=== PATIENT | female | born 2005 | race Caucasian/White ===

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

== ENCOUNTER 2024-07-28 11:28 | Emergency (ER) | payer BC, MEDICAID, SELFPAY ==
[2024-07-28 11:45] VITALS: BP 115/67; PULSE 81; RESP 18; TEMP 36.7; O2SAT 98; BMI 37.4
[2024-07-28 14:17] VITALS: BP 133/83; PULSE 88; O2SAT 96
--- NOTE | 2024-07-28 14:22 | USR_ITS ---
PROCEDURE INFORMATION: Exam: US First Trimester, Transabdominal and US , Transvaginal Exam date and time: 07/28/2024 2:57 PM Age: 19 years old Clinical indication: Screening exam; Routine US, uterus; Additional info: Vaginal bleeding S/P miscarriage TECHNIQUE: Imaging protocol: Real-time transabdominal obstetrical ultrasound of the maternal pelvis and a first trimester , less than 14 weeks 0 days, with image documentation. Transvaginal imaging was used for better evaluation of the fetus, adnexa, and/or cervix. COMPARISON: No relevant prior studies available. FINDINGS: GESTATION: Gestation: Not visualized. Embryo/ cardiac activity (BPM): N/A Extra-embryonic membranes/Placenta: No visualized. Amniotic/Chorionic fluid: Not visualized. BIOMETRY: Gestational age (AUA): N/A MATERNAL: Uterus: Uterus measures 5.7 cm in length. Endometrial stripe 0.5 cm. Cervix: Unremarkable. Endocervical canal is closed. Right ovary/adnexa: Unremarkable. Left ovary/adnexa: Anechoic cystic structure in the left adnexa measuring 4.2 x 4.6 x 5.7 cm on transabdominal exam and 4.8 x 3.2 x 4.6 cm on transvaginal exam. Intraperitoneal space: Trace free pelvic fluid. US/US OB <=14 wk fetus w transvag IMPRESSION: 1. No intrauterine identified. Findings are compatible with history of spontaneous . No evidence of retained products of conception. 2. Left adnexal cyst, possibly a corpus luteal cyst.
[2024-07-28 15:17] LABS: Basophils % 0.4 %; Eosinophils # 0.2 10^3/uL (0.0-0.8); Eosinophils % 2.6 %; Hematocrit 44.7 % (36-47); Lymphocytes # 1.6 10^3/uL (0.8-4.8); Lymphocytes % 23.7 %; Mean Corpuscular Volume 88.3 fl (85-98); Mean Platelet Volume 10.7 fL (7.4-10.4); Monocytes # 0.6 10^3/uL (0.2-0.9); Monocytes % 8.8 %; Neutrophils # 4.44 10^3/uL (1.8-7.7); Neutrophils % 64.2 %; Nucleated Red Blood Cells % 0 %; Platelet Count 314 10^3/cmm (157-399); Red Blood Count 5.06 10^6/uL (3.85-5.65); Red Cell Distribution Width 12.4 % (12.1-15.1); White Blood Count 6.92 10^3/uL (3.29-11.43)
[2024-07-28 15:32] LABS: HCG, Serum Qual Negative (Negative)
[2024-07-28 15:36] LABS: Alanine Aminotransferase 25 U/L (0-33); Albumin Level 4.5 g/dL (3.5-5.2); Alkaline Phosphatase 49 U/L (35-105); Anion Gap 15.4 (5-19); Aspartate Amino Transferase 15 U/L (0-32); Blood Urea Nitrogen 8 mg/dL (6-20); Calcium 9.3 mg/dL (8.5-10.5); Carbon Dioxide 24 mmol/L (22-29); Chloride 100 mmol/L (98-107); Globulin 2.7 g/dL (1.3-4.6); Glomerular Filtration Rate 126.2 mL/min (90-130); Glucose 90 mg/dL (65-115); Osmolality Calculated 280 mOsm/kg (285-295); Potassium 3.4 mmol/L (3.5-5.1); Sodium 136 mmol/L (136-145); Total Bilirubin 0.5 mg/dL (0.15-1.2); Total Protein 7.2 g/dL (6.6-8.7)
--- NOTE | 2024-07-28 15:45 | W.ED.PREGNAN ---
HPI - General: Chief complaint: Vaginal Bleeding Stated complaint: Heavy Vag Discharge Time Seen by Provider: 07/28/24 14:21 History of Present Illness: 19-year-old female who presents emergency room with concern for vaginal bleeding in with probable miscarriage. By the time she comes back to the room she says she passed the fetus while in the waiting room. She is cramping is improving. She says she was sent to do an outpatient ultrasound and lab work but there was some sort of clerical error and so she checked in the emergency room and then ended up having miscarriage while here. She said she has had multiple miscarriage and they have been able to figure out why. She said she is Rh- but she is never had a RhoGAM shot. No fevers. No altered mental status. No chest pain. No shortness of breath. Related Data Home Medications ?Medication ?Instructions ?Recorded ?Confirmed No Known Home Medications 07/28/24 07/28/24 Allergies Allergy/AdvReac Type Severity Reaction Status Date / Time benzonatate Allergy Mild hives Verified 07/28/24 11:54 diphenhydramine (From Allergy Mild hives Verified 07/28/24 11:54 Banophen Anti-Itch) loratadine Allergy Mild hives Verified 07/28/24 11:54 montelukast (From Singulair) Allergy Mild hives Verified 07/28/24 11:54 omeprazole Allergy Mild hives Verified 07/28/24 11:54 Penicillins Allergy Mild hives Verified 07/28/24 11:54 ranitidine (From Zantac) Allergy Mild hives Verified 07/28/24 11:54 tizanidine Allergy Mild hives Verified 07/28/24 11:54 zinc acetate (From Banophen Allergy Mild hives Verified 07/28/24 11:54 Anti-Itch) Review of Systems Narrative: Constitutional symptoms: Negative except as documented in HPI. Skin symptoms: Negative except as documented in HPI. Eye symptoms: Negative except as documented in HPI. ENMT symptoms: Negative except as documented in HPI. Respiratory symptoms: Negative except as documented in HPI. Cardiovascular symptoms: Negative except as documented in HPI. Gastrointestinal symptoms: Negative except as documented in HPI. Genitourinary symptoms: Negative except as documented in HPI. Musculoskeletal symptoms: Negative except as documented in HPI. Neurologic symptoms: Negative except as documented in HPI. Psychiatric symptoms: Negative except as documented in HPI. Endocrine symptoms: Negative except as documented in HPI. [facility] ED PFSH: Social History Smoking and tobacco/nicotine status: never used tobacco/nicotine Physical Exam Narrative: EXAM NARRATIVE: General: Alert, no acute distress. Skin: Warm, dry. Head: Normocephalic, atraumatic. Neck: Supple, trachea midline. Eye: Extraocular movements are intact. Ears, nose, mouth and throat: mucosa moist. Cardiovascular: Regular, Normal peripheral perfusion. Respiratory: Lungs are clear to auscultation, respirations are non-labored, breath sounds are equal, Symmetrical chest wall expansion. Gastrointestinal: Soft, Nontender, Non distended Musculoskeletal: Normal ROM, no deformity. Neurological: Alert and oriented, No focal neurological deficit observed. Psychiatric: Cooperative, appropriate mood & affect. Course Vital Signs: Vital signs: Vital Signs Temperature 98.0 F 07/28/24 11:45 Pulse Rate 87 07/28/24 16:29 Respiratory Rate 18 07/28/24 11:45 Blood Pressure 127/72 07/28/24 16:29 Pulse Oximetry 98 07/28/24 16:29 Oxygen Delivery Me thod Room Air 07/28/24 14:17 MDM - OB/Uterine Contractions Medical Decision Making Medical decision making: Differential diagnosis including but not limited to and based on the above HPI, review of systems and physical exam: for patient in early with vaginal bleeding and abdominal pain: Spontaneous , threatened . Urinary tract infection. ectopic . Orders placed to evaluate differential diagnosis based on the above differential, HPI and physical exam Lab Review: Laboratory results were reviewed and interpreted by myself the emergency room physician. No leukocytosis. No anemia. No renal failure. hCG is negative. Patient is Rh-. Ultrasound: Appears to be a complete miscarriage. There is a large cyst that the patient is aware of. This is being followed. This was reviewed and interpreted by myself the emergency room physician. I also reviewed the radiology report. I reviewed the patient's medical record. Reexamination: Patient remained stable. No increased work of breathing. No altered mental status. No focal motor deficits. Assessment and plan: Miscarriage Rh- ? Given that the patient passed a fairly large fetus and had vaginal bleeding I am giving RhoGAM. Pain medication here in the emergency room. - Discharged home - Discussed plan with patient. Answered any questions. - Evaluation and treatment of this problem were appropriate in the emergency setting. Lab Data 07/28/24 14:38 07/28/24 14:38 Radiology Impressions Obstetrics Ultrasound 07/28/24 14:22 IMPRESSION: 1. No intrauterine identified. Findings are compatible with history of spontaneous . No evidence of retained products of conception. 2. Left adnexal cyst, possibly a corpus luteal cyst. Laboratory Results WBC 6.92 10^3/uL (3.29-11.43) 07/28/24 14:38 RBC 5.06 10^6/uL (3.85-5.65) 07/28/24 14:38 Hgb 15.20 g/dL (11.27-16.99) 07/28/24 14:38 Hct 44.7 % (36-47) 07/28/24 14:38 MCV 88.3 fl (85-98) 07/28/24 14:38 MCH 30.0 pg (27-33) 07/28/24 14:38 MCHC 34.0 g/dL (30-55) 07/28/24 14:38 RDW 12.4 % (12.1-15.1) 07/28/24 14:38 Plt Count 314 10^3/cmm (157-399) 07/28/24 14:38 MPV 10.7 fL (7.4-10.4) H 07/28/24 14:38 Neut % (Auto) 64.2 % 07/28/24 14:38 Lymph % (Auto) 23.7 % 07/28/24 14:38 [place] % (Auto) 8.8 % 07/28/24 14:38 Eos % (Auto) 2.6 % 07/28/24 14:38 Baso % (Auto) 0.4 % 07/28/24 14:38 Neut # (Auto) 4.44 10^3/uL (1.8-7.7) 07/28/24 14:38 Lymph # (Auto) 1.6 10^3/uL (0.8-4.8) 07/28/24 14:38 [place] # (Auto) 0.6 10^3/uL (0.2-0.9) 07/28/24 14:38 Eos # (Auto) 0.2 10^3/uL (0.0-0.8) 07/28/24 14:38 Baso # (Auto) 0.0 10^3/uL (0.0-0.1) 07/28/24 14:38 Nucleated RBC % (auto) 0 % 07/28/24 14:38 Nucleated RBCs # 0.0 /100WBC 07/28/24 14:38 Sodium 136 mmol/L (136-145) 07/28/24 14:38 Potassium 3.4 mmol/L (3.5-5.1) L 07/28/24 14:38 Chloride 100 mmol/L (98-107) 07/28/24 14:38 Carbon Dioxide 24 mmol/L (22-29) 07/28/24 14:38 Anion Gap 15.4 (5-19) 07/28/24 14:38 BUN 8 mg/dL (6-20) 07/28/24 14:38 Creatinine 0.6 mg/dL (0.5-0.9) 07/28/24 14:38 GFR Calculation 126.2 mL/min (90-130) 07/28/24 14:38 Glucose 90 mg/dL (65-115) 07/28/24 14:38 Calculated Osmolality 280 mOsm/kg (285-295) L 07/28/24 14:38 Calcium 9.3 mg/dL (8.5-10.5) 07/28/24 14:38 Total Bilirubin 0.5 mg/dL (0.15-1.2) 07/28/24 14:38 AST 15 U/L (0-32) 07/28/24 14:38 ALT 25 U/L (0-33) 07/28/24 14:38 Alkaline Phosphatase 49 U/L (35-105) 07/28/24 14:38 Total Protein 7.2 g/dL (6.6-8.7) 07/28/24 14:38 Albumin 4.5 g/dL (3.5-5.2) 07/28/24 14:38 Globulin 2.7 g/dL (1.3-4.6) 07/28/24 14:38 HCG, Qual Negative (Negative) 07/28/24 14:38 Blood Type A Negative 07/28/24 14:38 Rho(D) Type Rh negative 07/28/24 14:38 All radiology interpretation(s) finalized by discharge Discharge Plan Discharge Patient Disposition: Home Clinical Impression: Complete miscarriage, Rh negative, antepartum Condition: Stable Prescriptions: No Action No Known Home Medications Discharge Orders: Discharge ED (Routine); Ordered 07/28/24 Ordered By: Renée Stinson Discharge Diet: Usual diet Discharge Activity: Increase activity as tolerated Patient Instructions: Miscarriage (ED), Opioid Safety, Pain Management Activity Restrictions/Additional Instructions: Please follow-up with your reclaimer. If you develop any worsening pelvic pain or fevers please return to the emergency room or seek urgent medical attention. Thank you for choosing [facility] for your healthcare needs today. You have been screened and evaluated and felt safe for discharge. Health conditions do change or evolve sometimes and as such it is important that you follow up with your Primary Doctor to be re checked, 3-5 days is a general good time frame for follow up. You are always welcome to return to the ED for re assessment if your symptoms are worsening or you have new concerns Print Language: Pashto Coding Level of Care Code ED Final Inspector Paper for Nicholas Landry
[2024-07-28] MEDS: HYDROcodone-acetaminophen 10-325 mg Tablet 1 TAB PO (16:05)
[2024-07-28] MEDS: rho(d) immune globulin 1,500 unit Syringe 1500 UNIT IM (16:05)
[2024-07-28 16:29] VITALS: BP 127/72; PULSE 87; O2SAT 98
== END 2024-07-28 16:30 | disposition home or self-care (01) ==
PROVIDERS: Emergency Provider Emergency Medicine
DX: O03.9 Complete or unspecified spontaneous abortion without complication (principal)
CPT/HCPCS: 36415; 76801; 76817; 80053; 84703; 85025; 86900; 96372; 99284; J2790; J9999

== ENCOUNTER 2024-10-18 14:51 | Emergency (ER) | payer MEDICAID, SELFPAY ==
--- OUTSIDE RECORDS SUMMARY | 2010-03-14 05:35 | XMS_ITS | Continuity of Care Document ---
Author Organization [facility] Address [address] [id number] [address] Phone Care Team Providers Care French Cord Binder Name Role Phone Unavailable Unavailable Unavailable Procedures Procedure Date Comprehensive Oral Evaluatio n New Or Established Panoramic Film Bitewings Two Films EDR Approval Note Advance Directives Directive Yes / No Effective Date File Name Resuscitation Not Answered N/A N/A Life Support Not Answered N/A N/A Intubation Not Answered N/A N/A Antibiotics Not Answered N/A N/A IV Fluid Support Not Answered N/A N/A Tube Feed Not Answered N/A N/A Other Directive N/A N/A WARNING:The information contained in this section is historical and is provided for information only and does not constitute a legal document or any assurance that the information is still accurate. Please verify the information with the perera of the legal document before using it for clinical purposes. Encounters Encounter Description Practice Location Reason(s) For Visit Diagnoses Date Provider Providers Copied on Encounter [facility], [id number], [id number], [place] tel:[phone] Family Medicine F1 No Information 0 No Information [facility], [id number] [facility], [place], [place], [id number], [place] tel:[phone] [facility] Dental examination 0 No Information Family History Family Member Type Diagnosis Age At Onset No Information Payers Payer name Insurance type Covered alliance party ID Dalton hernandez(s) D [id number] Social History Type Description Quantity Date Captured Comments Alcohol Use Details Unknown Caffeine Use Details Unknown Tobacco Use Status No Information Smoking Status No Information Sex Female Chief Complaint And Reason For Visit No Information Reason For Referral Reason For Referral No Information History Of Present Illness Encounter Date Complaint History Of Prese nt Illness No Information Functional Status Date Functional Assessmen t No Information Instructions Date Instruction Additional Infor mation No Information Assessments Type Assessment Date No Information Patient Care Teams Name Effective Dates (start - stop) Status Members No Information
[2024-10-18 14:59] VITALS: BP 134/82; PULSE 86; RESP 16; TEMP 37.2; O2SAT 97; BMI 32.1
--- OUTSIDE RECORDS SUMMARY | 2024-10-18 14:59 | XMS_ITS | Clinical Summary ---
Author Organization [facility] Address [address] [place] [address] Phone Care Team Providers Care Production Line Solderer Name Role Phone Yanira Santana LUIS ANTONIO Primary Care Provider Allergies Active Allergy Reactions Criticality Noted Date Comments Benzonatate 11/24/2021 Other reaction(s): Unknown Diphenhydramine Hcl 11/24/2021 Other reaction(s): Unknown Loratadine 07/03/2012 Other reaction(s): Unknown Montelukast 11/24/2021 Other reaction(s): Unknown Omeprazole 11/24/2021 Other reaction(s): Unknown Penicillamine Hives High 12/29/2010 Tizanidine 11/24/2021 Other reaction(s): Unknown Zantac Geldose 11/24/2021 Other reaction(s): Unknown Medications sertraline (Zoloft) 50 mg tabletIndicatio ns:SARA (generalized anxiety disorder) Take 1 tablet (50 mg total) by mouth 1 (one) time each day. 30 tablet 1 2 Active fluticasone (Flonase) 50 mcg/actuation nasal spray Administer 2 sprays into each nostril 1 (one) time each day. Shake gently. Before first use, prime pump. After use, clean tip and replace cap. 16 g 5 2 Active cetirizine (ZyrTEC) 10 mg tablet Take 1 tablet (10 mg total) by mouth 1 (one) time each day. 30 tablet 2 2 Active Active Problems Problem Noted Date Diagnosed Date SARA (generalized anxiety disorder) 01/12/2022 Family History Medical History Relation Comments Heart disease Father Mental illness Father Arthritis Mother COPD Mother Depression Mother Insomnia Mother Mental illness Sister Relation Status Comments Father Alive Mother Alive Sister Social History Tobacco Use Types Packs/Day Years Used Date Smoking Tobacco: Never Smokeless Tobacco: Never Alcohol Use Standard Drinks/Week Comments Never 0 (1 standard drink = 0.6 oz pur e alcohol) PHQ-2 Answer Date Recorded Patient Health Questionnaire-2 Score 0 03/07/2022 Comments Unknown Sex and Gender Information Value Date Recorded Sex Assigned at Female 01/12/2022 5:19 PM CDT Legal Sex Female 3:05 PM CDT Gender Identity Female 01/12/2022 5:19 PM CDT Sexual Orientation Straight 01/12/2022 5: 19 PM CDT Last Filed Vital Signs Vital Sign Reading Time Taken Comments Blood Pressure 110/75 03/07/2022 11:45 AM MECHANICAL ENGINEERING TECHNICIAN Pulse 86 03/07/2022 11:45 AM MECHANICAL ENGINEERING TECHNICIAN Temperature 36.6 C (97.9 F) 03/07/2022 11:45 AM MECHANICAL ENGINEERING TECHNICIAN Respiratory Rate 18 03/07/2022 11:45 AM MECHANICAL ENGINEERING TECHNICIAN Oxygen Saturation 97% 03/07/2022 11:45 AM MECHANICAL ENGINEERING TECHNICIAN Inhaled Oxygen Concentration - - Weight 77.7 kg (171 lb 6.4 oz) 03/07/2022 11:45 AM MECHANICAL ENGINEERING TECHNICIAN Height 154.9 cm (5' 1 ) 03/07/2022 11:45 AM MECHANICAL ENGINEERING TECHNICIAN Body Mass Index 32.39 03/07/2022 11:45 AM MECHANICAL ENGINEERING TECHNICIAN Plan of Treatment Health Maintenance Due Date Last Done Comments MMR Vaccines (1 of 1 - Standard series) 01/20/2010 Varicella Vaccines (1 of 2 - 13+ 2-dose series) 2016 HPV Vaccines (1 - 3-dose series) 2018 Meningococcal B Vaccine (1 of 2 - Standard) 2019 Depression Screening 2021 Social Drivers of Health (SDoH) 2021 Hepatitis B Vaccines (1 of 3 - 19+ 3-dose series) 2022 COVID-19 Vaccine ( - season) 2023 Pap Smear 2024 Influenza Vaccine (#1) 2024 11/19/2018, 12/15/2017, Additional history exists DTaP,Tdap,and Td Vaccines (7 - Td or Tdap) 11/03/2026 11/03/2016, 07/03/2007, 01/03/2005, Additional history exists Pneumococcal Vaccine: 50+ Years (1 of 1 - PCV) 2053 07/20/2005, 07/20/2005, 2003, Additional history exists Zoster Vaccines (1 of 2) 2053 07/03/2007, 07/01 RSV Vaccines (1 - 1-dose 75+ series) 2078 Pneumococcal Vaccine Aged Out 07/20/2005, 07/20/2005, 2003, Additional history exists No longer eligible based on patient's age to complete this topic HIB Vaccines Aged Out No longer eligi ble based on patient's age to complete this topic Hepatitis A Vaccines Aged Out No long er eligible based on patient's age to complete this topic IPV Vaccines Aged Out No longer eligi ble based on patient's age to complete this topic Meningococcal Vaccine Aged Out No deny [place] eligible based on patient's age to complete this topic Rotavirus Vaccines Aged Out No longer eligible based on patient's age to complete this topic Insurance [facility] MEDICAID REPLACEMENT Care Teams Production Line Solderer Relationship Specialty Start Date End Date Yanira Santana FNP [address] [place] [address] PCP - General Family Medicine 01/12/22
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
--- OUTSIDE RECORDS SUMMARY | 2024-10-18 14:59 | XMS_ITS | Data Portability ---
Author Organization JANAY Yanira Ramirez [facility] hospital - New Address [address] [place] [address] Care Team Providers [facility] Display Builder Name Role Phone GUANAKO KEENAN Primary Care Provider Assessment No assessment recorded. Plan of Treatment Reminders Order Date Submit Date Provider Last Modified By Organization Details Last Modified Time Details Appointments None recorded. Lab None recorded. Referral None recorded. Procedures None recorded. Surgeries None recorded. Imaging None recorded. Medication Orders fluconazole 200 mg tablet 2023 024 [facility] [address] [place], [address], 14:02:18 ketoconazol e 2 % shampoo 2023 024 [facility] [address] [place], [address], 4 14:02:19 Patient TargetsNo targets recorded. Patient InstructionsNo instructions recorded. Reason for Referral None Reported. Procedures Surgical History Date Name Laterality Status Provider Name and Address Organization Details Recorded Time repair of tendon completed Cait Cotto [facility] 03/13/2024 12:30:58 excision of part of metatarsal bone completed Cait Cotto [facility] 03/13/2024 12:31:35 Imaging Results None recorded. Procedure Notes None recorded. Medical Equipment None Reported. Allergies Allergen ID Allergen Name Allergen Category Reaction Reaction Severity Criticality Documentation Date Start Date Code Code System Note Provider Name and Address Organization Details Recorded Time 041636 Product containin g penicilli n (product) medicatio n hives Not available [facility] 03/13/2024 70627 8001 SNOMED [facility] 12:33:36 757925 Zyrtec medicatio n Not available Not available Not available 03/13/2024 08420 RxNorm unkno wn JANAY Gates [facility] 4 12:33:57 143389 Zantac medicatio n Not available Not available Not available 03/13/2024 30527 3 RxNorm [facility]no wn [facility] 4 12:34:06 782082 tizanidin e medicatio n Not available Not available Not available 03/13/2024 19787 RxNorm unkno wn JANAY Gates [facility] 4 12:34:56 169342 Singulair medicatio n Not available Not available Not available 03/13/2024 22453 9 [facility] 12:35[facility]23 264005 Banophen Cream medicatio n Not available Not available Not available 03/13/2024 94497 25 [facility] 4 12:35:42 920730 loratadin e medicatio n Not available Not available Not available 03/13/2024 47113 RxNorm unkno wn [facility] 4 12:35:52 111556 omeprazol e medicatio n Not available Not available Not available 03/13/2024 7646 RxNorm unkno wn JANAY Gates Yanira [facility] 4 12:36:06 Medications Name Sig Start Date Stop Date Status Note LastModified by Organization Details LastModified Time ketoconazol e 2 % shampoo APPLY TO THE AFFECTED AREA(S), LATHER, LEAVE IN PLACE FOR 5 MINUTES, AND THEN RINSE OFF WITH WATER BY TOPICAL ROUTE ONCE DAILY 2023 active Not Available Not Available Not Avai lable Kenalog 0.1 % topical cream APPLY A THIN LAYER TO THE AFFECTED AREA(S) BY TOPICAL ROUTE 2 TIMES PER DAY active Not Available Not Available No t Available fluconazole 200 mg tablet Take 1 tablet by mouth once weekly x 4 weeks 2023 active Not Available Not Available Not Avai lable oxybutynin chloride 5 mg tablet Take 1 tablet twice a day by oral route. 03/14 completed Not Available Not Available Not Available Linzess 145 mcg capsule Take 1 capsule every day by oral route. 03/14 completed Not Available Not Available Not Available Vitals None Recorded Social History Question Answer Notes LastModified by [employer] Details LastModified Time Tobacco Smoking Status Never Smoker Cait Cotto [facility] 03/13/2024 12:31:57 What Was The Date Of Your Most Recent Tobacco Screening? 04/23/2024 Information not available 04/22/2024 Sex: Unknown Functional Status Question Answer Note LastModified by Personal Estate Managerizat ion Details LastModified Time Do you or have you ever used any other forms of tobacco or nicotine? Yes [email or web address] Information not available 03/13/2024 Do you or have you ever used e-cigarettes or vape? Former user of electronic cigarettes Information not available 04/22/2024 Mental Status None recorded. Family History Nothing Reported Notes:negative family hx of skin cancer, scarring acne, psoriasis Medical History No medical history recorded. Gynecological HistoryNo gynecological history recorded. Obstetrics History GPAL:G 0 P 0 0 0 0 Past Encounters Encounter ID Performer Location Encounter Start Date Encounter Closed Date Diagnosis/Indication Diagnosis SNOMED-CT Code Diagnosis ICD10 Code Diagnosis Note [id number] [place] [address] [facility] [facility] [address] [facility] [place] [id number] 03/14/2024 13:44:09 03/14/2024 14:06:05 Pityriasis versicolor 83587367 B36.0 -itchy rash on trunk and arms-pink macular scaly eruption-p resent x 3-4 months-tho ught it was eczema-was treating it with a steroid cream but it didnt help-etiol ogy discussed- tx as below-f/u 6 weeks [id number] [place] [address] [facility] [address] [facility] JANAY OTERO [id number] 04/23/2024 11:10:23 04/23/2024 12:04:01 Pityriasis versicolor 29141853 B36.0 Update:-im proved with ketoconazo le shampoo and diflucan-n ot present today-has a little bit of PIH on the left arm today-reas surance-wi ll continue ketoconazo le shampoo as a body wash 2-3 times weekly to prevent recurrence -f/u as needed Previously :-itchy rash on trunk and arms-pink macular scaly eruption-p resent x 3-4 months-o ught it was eczema-was treating it with a steroid cream but it didnt help-etiol ogy discussed- tx as below-f/u 6 weeks Health Concerns Section Related Observation LastModified by Organization Detai ls LastModified Time None Recorded Concern Status LastModified by Organization Details LastModified Time None Recorded Advance Directives Directive None Recorded Payers Insurance Date Sequence Insurance Name Policy Number Policy Brooks Covered Member ID Brooks Member ID Guarantor Name 04/28/2024 1 [facility] (MEDICAID REPLACEMENT - HMO) [place] Peter More [id number] Peter More Notes Date Note Type Note Provider Name and Address Organization Details Recorded Time 03/14/2024 text/html Patient presents to the office today for evaluation.Referral by: Problem:rashLocation:to kyler bodySymptoms:itch, red flares, spreading, flakesDays/Weeks/Months /Years:3-4 monthsTreatments tried? Helped/Failed?:kenalog cream- not helping Personal history of NMSC: NoPersonal history of melanoma: NoPersonal history of eczema: YESPersonal history of psoriasis: NoFamily history of skin cancer: NoFamily history of psoriasis/eczema: EczemaFamily history of scarring acne: NoFMHx: eczema- unspecified REBECA Loaiza [address], [address], [facility] 03/14/2024 14:10:47 04/23/2024 text/html Patient presents to the office today for follow up. pityriasis versicolor Last seen:03/14/24 Problem:rash Location:arm Symptoms:starting to heal but has changed into a different color Days/Weeks/Months/Years :4/5 mo Treatments tried? Helped/Failed?: fluconazole 200 mg tabletketoconazole 2 % shampoo Relevant PMHx/FHx:PMHx- eczema.FMHx: eczema- unspecified REBECA Loaiza [address], [place], [address], [facility] 04/23/2024 12:03:08 OBGyn Episode No OBEpisode recorded.
--- OUTSIDE RECORDS SUMMARY | 2024-10-18 14:59 | XMS_ITS | Clinical Summary ---
Author Organization [facility] Address [address] [place] [address] Care Team Providers Care Measurement Operator Name Role Phone Young Arcos ELECTRONIC TRAIN CONTROL TECHNICIAN Primary Care Provider [phone] Allergies Active Allergy Reactions Criticality Noted Date Comments Diphenhydramine Other/Unknown (See Comments) 09/18/2022 Pt does not recall her reaction Benzyl Benzoate Other/Unknown (See Comments) 09/18/2022 Pt does not recall her reaction Loratadine Other/Unknown (See Comments) 09/18/2022 Pt does not recall her reaction Omeprazole Other/Unknown (See Comments) 09/18/2022 Pt does not recall her reaction Penicillins Hives 09/18/2022 Montelukast Other/Unknown (See Comments) 09/18/2022 Pt does not recall her reaction Tizanidine Other/Unknown (See Comments) 09/18/2022 Pt does not recall her reaction Ranitidine Other/Unknown (See Comments) 09/18/2022 Pt does not recall her reaction Cetirizine Other/Unknown (See Comments) 09/18/2022 Pt does not recall her reaction Medications Ferrous Sulfate (IRON PO) Take 1 Chew tab by mouth daily as needed Active Bioflavonoid Products (VITAMIN C) CHEW Take 1 Chew tab by mouth daily as needed Active progesterone (PROMETRIUM) 200 MG capsule Take 1 capsule (200 mg) by mouth 2 times daily 12/04/2023 Active multivitamin ( S) 27-0.8 MG tablet Take 1 tablet by mouth daily Active Pyridoxine HCl (B-6 PO) Take Active Iron-Vitamins (GERITOL PO) Take 1 each by mouth Active CUSTOM MED Bella aguillon Active Active Problems Problem Noted Date Diagnosed Date Displaced fracture of fifth metatarsal bone, right foot, initial encounter for closed fracture 11/14/2022 Immunizations Immunization Administration Dates Next Due HPV, 9-Valent 10/17/2019,03/24/2019 Tdap 11/03/2016 Social History Tobacco Use Types Packs/Day Years Used Date Smoking Tobacco: Never Passive Smoke Exposure: Current Smokeless Tobacco: Never Tobacco Cessation:Counseling Given: Not Answered Comments:Hand out given/ currently vapes Alcohol Use Standard Drinks/Week Comments Yes 0 (1 standard drink = 0.6 oz pur e alcohol) Humiliation, Afraid, Rape, and Kick questionnair e Answer Date Recorded Within the last year, have y ou been afraid of your partner or ex-partner? No 11/15/2022 Within the last year, have y ou been humiliated or emotionally abused in other ways by your partner or ex-partner? No Within the last year, have y ou been kicked, hit, slapped, or otherwise physically hurt by your partner or ex-partner? No 11/15/2022 Within the last year, have y ou been raped or forced to have any kind of sexual activity by your partner or ex-partner? No 11/15/2022 Hunger Vital Sign Answer Date Recorded Within the past 12 months, y ou worried that your food would run out before you got the money to buy more. Never true 11/16/19 23 Within the past 12 months, t he food you bought just didn't last and you didn't have money to get more. Never true 11/15/2022 PRAPARE - Transportation Answer Date Re corded In the past 12 months, has l ack of transportation kept you from medical appointments or from getting medications? No 10/31 In the past 12 months, has l ack of transportation kept you from meetings, work, or from getting things needed for daily living? No 11/15/2022 Housing Stability Vital Sign Answer Sam e Recorded In the last 12 months, was t here a time when you were not able to pay the mortgage or rent on time? No 11/15/2022 Number of Places Lived in the Last Year Not on f ile 11/15/2022 In the last 12 months, was t here a time when you did not have a steady place to sleep or slept in a mcc (including now)? No 11/15/2022 Alcohol Use Answer Date Recorded Frequency of Alcohol Consumption Not on file 08/29/2023 Average Number of Drinks Not on file 024 Frequency of Binge Drinking Not on file 08/01 Alcohol Use Status Yes 08/29/2023 Average alcohol consumption Not on file 08/01 Comments No Sex and Gender Information Value Date Recorded Sex Assigned at Female 10/26/2022 8:07 PM CDT Legal Sex Female 11:03 PM CDT Gender Identity Female 10/26/2022 8:07 PM CDT Sexual Orientation Straight 01/11/2024 6: 24 PM CDT Last Filed Vital Signs Vital Sign Reading Time Taken Comments Blood Pressure 118/68 06/25/2024 10:36 AM CDT Pulse 98 06/25/2024 10:36 AM CDT Temperature 36.9 C (98.4 F) 03/12/2024 1:42 PM VICE PRESIDENT OF DEVELOPMENT Respiratory Rate 20 12/01/2023 5:04 PM CDT Oxygen Saturation 98% 06/25/2024 10: 36 AM CDT Inhaled Oxygen Concentration - - Weight 89.3 kg (196 lb 12.8 oz) 025 10:36 AM CDT Height 154.9 cm (5' 1 ) 06/25/2024 10:3 6 AM CDT Body Mass Index 37.19 06/25/2024 10:36 AM CDT Plan of Treatment Health Maintenance Due Date Last Done Comments HIV Screening 2003 Hepatitis C Screening ages 18 to 79 once 2003 MMR VACCINES (1 of 1 - Standard series) 2004 YEARLY WELLNESS EXAM 2006 Varicella Vaccine (1 of 2 - 13+ 2-dose series) 2016 DTaP/Tdap/Td Vaccines (2 - Td or Tdap) 12/01/2016 11/03/2016 Meningococcal B Vaccine (1 of 2 - Standard) 2019 HPV VACCINES (3 - 3-dose series) 01/09/2020 10/17/2019, 03/24/2019 HEPATITIS B VACCINES (1 of 3 - 19+ 3-dose series) 2022 COVID-19 Immunization ( season) 2023 CHLAMYDIA SCREENING 12/05/2023 12/04/2022 CERVICAL CANCER SCREENING 2024 BMI Above/Below Normal Parameters 09/25/2024 09/26/2023, 09/26/2023, 08/29/2023, Additional history exists Influenza Vaccine 10/31/2024 DEPRESSION SCREENING 03/12/2025 03/12/2024, 09/26/2023, 09/22/2022 ADULT TETANUS 11/03/2026 11/03/2016 Zoster Vaccine (Recombinant Vaccine) (1 of 2) 2053 HEPATITIS A VACCINES Aged Out No long er eligible based on patient's age to complete this topic HIB VACCINES Aged Out No longer eligi ble based on patient's age to complete this topic IPV VACCINES Aged Out No longer eligi ble based on patient's age to complete this topic MENINGOCOCCAL VACCINE Aged Out No deny clifton eligible based on patient's age to complete this topic Pneumococcal Vaccine: Peds to 50 & At-Risk Patients Aged Out No longer eligi ble based on patient's age to complete this topic ROTAVIRUS VACCINES Aged Out No longer eligible based on patient's age to complete this topic Procedures Procedure Name Priority Date/Time Associated Diagnosis Comments CHLAMYDIA/GC/TRICHO MONAS BY [place] STAT 12/04/2022 10:47 PM CDT from Last 3 Months or Most Recently Relevant to Health Maintenance Results * CHLAMYDIA/GC/TRICHOMONAS BY [place] (12/04/2022 10:47 PM CDT) CT/GC/TV Method AMPLIFIED DETECTION (APTIMA) [facility] CT/GC/TV Specimen VAGINAL [facility] Chlamydia (CT) Result NEGATIVE [facility]GATIVE [facility] Gonorrhoeae (GC) Result NEGATIVE NEGATIVE [facility] Trichomonas Vaginalis (TV) Result NEGATIVE NEGATIVE [facility] CT/GC/TV Normal NORMAL RANGE: NEGATIVE [facility] TV Note 1 A NEGATIVE RESULT DOES NOT RULE OUT INFECTION. PERFORMANCE OF THIS TESTING HAS NOT BEEN EVALUATED IN ADOLESCENTS LESS THAN 14 YEARS OF AGE. [facility] Vaginal (Vaginal) 12/04/2022 10:47 PM CDT 12/04/2022 10:55 PM CDT Arlen Arias PA-C MICROBIOLOGY - GENERAL O RDERABLES Final Result [facility] [address] [place] [address] CLIA Number: [id number] [place] [id number] [place] [address] LABORATORY [address] [place] [id number] from Last 3 Months or Most Recently Relevant to Health Maintenance Insurance [facility] COMM [place]AN [place] MEDICAID Member Subscriber Plan / Payer (Ef fective 2022-Present) Name:Peter More Relation to Subscriber:Self Name:Peter More Payer ID:[id number] (NAIC) Group ID:[id number] Type:CONTRACTED Address: [place] [phone] [facility] [place] [facility] [place] Care Teams Measurement Operator Relationship Specialty Start Date End Date Young Arcos APRN [address] [place] [address] [place] [address] PCP - General Nurse Practitioner 09/26/23
--- NOTE | 2024-10-18 15:08 | W.ED.ABDPA2 ---
Documented by User: Eleuterio Rey DO 10/20/24 05:53 HPI - Abdominal Pain General: Chief Complaint: Abdominal Pain Stated Complaint: pain in lower abdomen Time Seen by Provider: 10/18/24 14:59 History of Present Illness: 19-year-old female presents to the emergency room with complaints of pelvic cramping. She had a D&C last month because she had had several miscarriages. She did not have a period since then she began getting. And now has cramping and passed a few small clots. No fever sweats chills no dysuria urgency or frequency. Associated Symptoms: Denies chills, dysuria and fever(s) Related Data Home Medications ?Medication ?Instructions ?Recorded ?Confirmed Lion's Gautam 1 cap PO QPM PRN REST 10/18/24 10/18/24 ascorbic acid (vitamin C) 1,000 mg 1,000 mg PO DAILY 10/18/24 10/18/24 tablet (Vitamin C) iron, carbonyl 15 mg chewable 15 mg PO DAILY 10/18/24 10/18/24 tablet (Iron Chews) potassium chloride 10 mEq 10 meq PO DAILY 10/18/24 10/18/24 capsule,extended release progesterone micronized 200 mg 200 mg PO BID 10/18/24 10/18/24 capsule Allergies Allergy/AdvReac Type Severity Reaction Status Date / Time benzonatate Allergy Mild hives Verified 07/28/24 11:54 diphenhydramine (From Allergy Mild hives Verified 07/28/24 11:54 Banophen Anti-Itch) loratadine Allergy Mild hives Verified 07/28/24 11:54 montelukast (From Singulair) Allergy Mild hives Verified 07/28/24 11:54 omeprazole Allergy Mild hives Verified 07/28/24 11:54 Penicillins Allergy Mild hives Verified 07/28/24 11:54 ranitidine (From Zantac) Allergy Mild hives Verified 07/28/24 11:54 tizanidine Allergy Mild hives Verified 07/28/24 11:54 zinc acetate (From Banophen Allergy Mild hives Verified 07/28/24 11:54 Anti-Itch) Review of Systems Const: Denies: fever(s) or chills Card: Denies: chest pain Resp: Denies: dyspnea GI: Reports: abdominal pain : Denies: dysuria, urinary frequency or urinary urgency Musc: Denies: neck pain or back pain Skin/Breast: Denies: rash PFSH ED PFSH: Social History Smoking and tobacco/nicotine status: never used tobacco/nicotine Physical Exam Const: COMMON NORMALS: no acute distress GENERAL APPEARANCE: cooperative and comfortable ORIENTATION/CONSCIOUSNESS: Yes awake, Yes oriented to person, Yes oriented to place and Yes oriented to time HENMT: COMMON NORMALS: normocephalic, atraumatic and hearing grossly normal bilaterally HEAD & SCALP: normocephalic and atraumatic Resp: COMMON NORMALS: normal respiratory effort, No retractions, No use of accessory muscles and clear to auscultation bilaterally AUSCULTATION: clear to auscultation bilaterally Cardio: COMMON NORMALS: regular rate, regular rhythm and No murmurs present (Cardio) RATE: regular rate RHYTHM: regular rhythm GI: COMMON NORMALS: No hepatosplenomegaly present AUSCULTATION: Yes normoactive bowel sounds PALPATION: Yes Tenderness to palpation present (GI) (Lower abdomen bilaterally), No Guarding due to palpation present (GI) and Yes No hepatosplenomegaly present Extremity: COMMON NORMALS: normal to inspection, capillary refill normal, no clubbing, cyanosis or edema, no calf tenderness and no pedal edema Neuro: SENSORIUM/ORIENTATION: Yes oriented to person, Yes oriented to place and Yes oriented to time Skin: COMMON NORMALS: no rashes or lesions noted GENERAL SKIN EXAM: no rashes or lesions noted Course Vital Signs: Vital signs: Vital Signs Temperature 98.9 F 10/18/24 14:59 Pulse Rate 75 10/18/24 19:56 Respiratory Rate 18 10/18/24 19:56 Blood Pressure 110/76 10/18/24 19:56 Pulse Oximetry 98 10/18/24 19:56 Oxygen Delivery Me thod Room Air 10/18/24 14:59 MDM - Abdominal Pain Medical Decision Making CT shows pelvic cyst pelvic ultrasound pending. Care signed out to Dr. Sellers at change of shift. See final notes for diagnosis and disposition. See post signout documentation Lab Data 10/18/24 15:10 10/18/24 15:10 Labs/Radiology: Radiology Impressions Abdomen/Pelvis CT 10/18/24 15:35 IMPRESSION: 1. Bilateral adnexal cystic lesions, measuring up to 7.2 x 5.1 cm on the right and 4 x 2.8 cm on the left. If clinically indicated, pelvic ultrasound may be obtained for further evaluation. 2. Additional findings, as above. Transvaginal US 10/18/24 17:07 IMPRESSION: Normal ovarian arterial and venous vascular flow. No evidence ovarian torsion. IMPRESSION: 1. 3.4 x 2.9 x 3.8 cm complex left ovarian cystic lesion with internal septations and debris, likely a hemorrhagic cyst. 2. 6.7 x 4.9 x 7.3 cm simple right ovarian cyst, likely a follicular cyst. 3. Additional findings, as above. Laboratory Results WBC 7.10 10^3/uL (3.29-11.43) 10/18/24 15:10 RBC 4.62 10^6/uL (3.85-5.65) 10/18/24 15:10 Hgb 14.10 g/dL (11.27-16.99) 10/18/24 15:10 Hct 41.1 % (36-47) 10/18/24 15:10 MCV 89.0 fl (85-98) 10/18/24 15:10 MCH 30.5 pg (27-33) 10/18/24 15:10 MCHC 34.3 g/dL (30-55) 10/18/24 15:10 RDW 11.9 % (12.1-15.1) L 10/18/24 15:10 Plt Count 301 10^3/cmm (157-399) 10/18/24 15:10 MPV 10.7 fL (7.4-10.4) H 10/18/24 15:10 Neut % (Auto) 61.3 % 10/18/24 15:10 Lymph % (Auto) 23.9 % 10/18/24 15:10 [place] % (Auto) 9.7 % 10/18/24 15:10 Eos % (Auto) 4.2 % 10/18/24 15:10 Baso % (Auto) 0.6 % 10/18/24 15:10 Neut # (Auto) 4.35 10^3/uL (1.8-7.7) 10/18/24 15:10 Lymph # (Auto) 1.7 10^3/uL (0.8-4.8) 10/18/24 15:10 [place] # (Auto) 0.7 10^3/uL (0.2-0.9) 10/18/24 15:10 Eos # (Auto) 0.3 10^3/uL (0.0-0.8) 10/18/24 15:10 Baso # (Auto) 0.0 10^3/uL (0.0-0.1) 10/18/24 15:10 Nucleated RBC % (auto) 0 % 10/18/24 15:10 Nucleated RBCs # 0.0 /100WBC 10/18/24 15:10 Sodium 140 mmol/L (136-145) 10/18/24 15:10 Potassium 3.7 mmol/L (3.5-5.1) 10/18/24 15:10 Chloride 103 mmol/L (98-107) 10/18/24 15:10 Carbon Dioxide 23 mmol/L (22-29) 10/18/24 15:10 Anion Gap 17.7 (5-19) 10/18/24 15:10 BUN 13 mg/dL (6-20) 10/18/24 15:10 Creatinine 0.6 mg/dL (0.5-0.9) 10/18/24 15:10 GFR Calculation 126.2 mL/min (90-130) 10/18/24 15:10 Glucose 84 mg/dL (65-115) 10/18/24 15:10 Calculated Osmolality 289 mOsm/kg (285-295) 10/18/24 15:10 Calcium 9.5 mg/dL (8.5-10.5) 10/18/24 15:10 Total Bilirubin 0.3 mg/dL (0.15-1.2) 10/18/24 15:10 AST 14 U/L (0-32) 10/18/24 15:10 ALT 20 U/L (0-33) 10/18/24 15:10 Alkaline Phosphatase 50 U/L (35-105) 10/18/24 15:10 Total Protein 7.0 g/dL (6.6-8.7) 10/18/24 15:10 Albumin 4.3 g/dL (3.5-5.2) 10/18/24 15:10 Globulin 2.7 g/dL (1.3-4.6) 10/18/24 15:10 HCG, Qual Negative (Negative) 10/18/24 15:10 Urine Color Masterson (Yellow) A 10/18/24 15:31 Urine Appearance Cloudy (CLEAR) A 10/18/24 15:31 Urine pH 5.5 (5-7) 10/18/24 15:31 Ur Specific [place] 1.028 (1.005-1.030) 10/18/24 15:31 Urine Protein Trace (Negative) A 10/18/24 15:31 Urine Glucose (UA) Negative (Normal) 10/18/24 15: Urine Ketones Trace (Negative) 10/18/24 15:31 Urine Blood 3+ (Negative) A 10/18/24 15:31 Urine Nitrate Negative (Negative) 10/18/24 15:31 Urine Bilirubin Negative (Negative) 10/18/24 15:31 Urine Urobilinogen 1.0 mg/dL (Negative) 10/18/24 15:31 Ur Leukocyte Esterase Trace (Negative) A 10/18/24 15:31 Urine RBC >100 /hpf (0-2) H 10/18/24 15:31 Urine WBC 6-10 /hpf (0-5) 10/18/24 15:31 Ur Squamous Epith Cells 0-5 /hpf (0-5) 10/18/24 15:31 Amorphous Sediment Not Reportable 10/18/24 15:31 Urine Bacteria None seen /hpf (NONE) 10/18/24 15:31 Hyaline Casts 0.81 /lpf 10/18/24 15:31 Discharge Plan Discharge Patient Disposition: Home Clinical Impression: Pelvic cramping, Abnormal vaginal bleeding Condition: Stable Prescriptions: No Action ascorbic acid (vitamin C) [Vitamin C] 1,000 mg Tablet 1,000 mg PO DAILY potassium chloride 10 mEq Capsule, Extended Release 10 meq PO DAILY Iron Chews 15 mg Tablet,Chewable 15 mg PO DAILY progesterone micronized 200 mg capsule 200 mg PO BID Lion's Gautam 1 cap PO QPM PRN (Reason: REST ) Discharge Orders: Discharge ED (Routine); Ordered 10/18/24 Ordered By: Adair Sellers Discharge Diet: Usual diet Discharge Activity: Resume usual activity Patient Instructions: Abnormal (Dysfunctional) Uterine Bleeding (ED), Patient Portal & Jim Instructions Activity Restrictions/Additional Instructions: Your blood tests, CAT scan, and ultrasound are all reassuring with no evidence of major problems requiring surgery or change in medication. Your blood levels are safe. Though not ideal, the amount of bleeding you are experiencing is not life-threatening or in need of emergent intervention. If bleeding continues please follow-up with your [facility]NA[facility] physician in the clinic. Print Language: Latvian Sign Out Sign Out Data: Patient Sign Out occurred on 10/18/24 at 17:24. Patient's care was discussed, and care was transferred from Eleuterio Rey DO to Adair Sellers MD. Post-Handoff Eval: Patient remained hemodynamically stable 30 course. Ultrasound, CT scan, and labs are all reassuring with no evidence of acute process requiring emergent intervention. She was encouraged to follow-up with [facility]NA[facility] and shows good understanding and agrees to plan. Coding Level of Care Code ED Screen Machine Operator for Chg Fwd Documented by User: Adair Sellers MD 10/18/24 19:50 HPI - Abdominal Pain General: Chief Complaint: Abdominal Pain Stated Complaint: pain in lower abdomen Time Seen by Provider: 10/18/24 14:59 Related Data Home Medications ?Medication ?Instructions ?Recorded ?Confirmed Lion's Gautam 1 cap PO QPM PRN REST 10/18/24 10/18/24 ascorbic acid (vitamin C) 1,000 mg 1,000 mg PO DAILY 10/18/24 10/18/24 tablet (Vitamin C) iron, carbonyl 15 mg chewable 15 mg PO DAILY 10/18/24 10/18/24 tablet (Iron Chews) potassium chloride 10 mEq 10 meq PO DAILY 10/18/24 10/18/24 capsule,extended release progesterone micronized 200 mg 200 mg PO BID 10/18/24 10/18/24 capsule Allergies Allergy/AdvReac Type Severity Reaction Status Date / Time benzonatate Allergy Mild hives Verified 07/28/24 11:54 diphenhydramine (From Allergy Mild hives Verified 07/28/24 11:54 Banophen Anti-Itch) loratadine Allergy Mild hives Verified 07/28/24 11:54 montelukast (From Singulair) Allergy Mild hives Verified 07/28/24 11:54 omeprazole Allergy Mild hives Verified 07/28/24 11:54 Penicillins Allergy Mild hives Verified 07/28/24 11:54 ranitidine (From Zantac) Allergy Mild hives Verified 07/28/24 11:54 tizanidine Allergy Mild hives Verified 07/28/24 11:54 zinc acetate (From Banophen Allergy Mild hives Verified 07/28/24 11:54 Anti-Itch) PFSH ED PFSH: Social History Smoking and tobacco/nicotine status: never used tobacco/nicotine Course Vital Signs: Vital signs: Vital Signs Temperature 98.9 F 10/18/24 14:59 Pulse Rate 75 10/18/24 19:56 Respiratory Rate 18 10/18/24 19:56 Blood Pressure 110/76 10/18/24 19:56 Pulse Oximetry 98 10/18/24 19:56 Oxygen Delivery Me thod Room Air 10/18/24 14:59 MDM - Abdominal Pain Medical Decision Making See post signout documentation Lab Data 10/18/24 15:10 10/18/24 15:10 Labs/Radiology: Radiology Impressions Abdomen/Pelvis CT 10/18/24 15:35 IMPRESSION: 1. Bilateral adnexal cystic lesions, measuring up to 7.2 x 5.1 cm on the right and 4 x 2.8 cm on the left. If clinically indicated, pelvic ultrasound may be obtained for further evaluation. 2. Additional findings, as above. Transvaginal US 10/18/24 17:07 IMPRESSION: Normal ovarian arterial and venous vascular flow. No evidence ovarian torsion. IMPRESSION: 1. 3.4 x 2.9 x 3.8 cm complex left ovarian cystic lesion with internal septations and debris, likely a hemorrhagic cyst. 2. 6.7 x 4.9 x 7.3 cm simple right ovarian cyst, likely a follicular cyst. 3. Additional findings, as above. Laboratory Results WBC 7.10 10^3/uL (3.29-11.43) 10/18/24 15:10 RBC 4.62 10^6/uL (3.85-5.65) 10/18/24 15:10 Hgb 14.10 g/dL (11.27-16.99) 10/18/24 15:10 Hct 41.1 % (36-47) 10/18/24 15:10 MCV 89.0 fl (85-98) 10/18/24 15:10 MCH 30.5 pg (27-33) 10/18/24 15:10 MCHC 34.3 g/dL (30-55) 10/18/24 15:10 RDW 11.9 % (12.1-15.1) L 10/18/24 15:10 Plt Count 301 10^3/cmm (157-399) 10/18/24 15:10 MPV 10.7 fL (7.4-10.4) H 10/18/24 15:10 Neut % (Auto) 61.3 % 10/18/24 15:10 Lymph % (Auto) 23.9 % 10/18/24 15:10 [place] % (Auto) 9.7 % 10/18/24 15:10 Eos % (Auto) 4.2 % 10/18/24 15:10 Baso % (Auto) 0.6 % 10/18/24 15:10 Neut # (Auto) 4.35 10^3/uL (1.8-7.7) 10/18/24 15:10 Lymph # (Auto) 1.7 10^3/uL (0.8-4.8) 10/18/24 15:10 [place] # (Auto) 0.7 10^3/uL (0.2-0.9) 10/18/24 15:10 Eos # (Auto) 0.3 10^3/uL (0.0-0.8) 10/18/24 15:10 Baso # (Auto) 0.0 10^3/uL (0.0-0.1) 10/18/24 15:10 Nucleated RBC % (auto) 0 % 10/18/24 15:10 Nucleated RBCs # 0.0 /100WBC 10/18/24 15:10 Sodium 140 mmol/L (136-145) 10/18/24 15:10 Potassium 3.7 mmol/L (3.5-5.1) 10/18/24 15:10 Chloride 103 mmol/L (98-107) 10/18/24 15:10 Carbon Dioxide 23 mmol/L (22-29) 10/18/24 15:10 Anion Gap 17.7 (5-19) 10/18/24 15:10 BUN 13 mg/dL (6-20) 10/18/24 15:10 Creatinine 0.6 mg/dL (0.5-0.9) 10/18/24 15:10 GFR Calculation 126.2 mL/min (90-130) 10/18/24 15:10 Glucose 84 mg/dL (65-115) 10/18/24 15:10 Calculated Osmolality 289 mOsm/kg (285-295) 10/18/24 15:10 Calcium 9.5 mg/dL (8.5-10.5) 10/18/24 15:10 Total Bilirubin 0.3 mg/dL (0.15-1.2) 10/18/24 15:10 AST 14 U/L (0-32) 10/18/24 15:10 ALT 20 U/L (0-33) 10/18/24 15:10 Alkaline Phosphatase 50 U/L (35-105) 10/18/24 15:10 Total Protein 7.0 g/dL (6.6-8.7) 10/18/24 15:10 Albumin 4.3 g/dL (3.5-5.2) 10/18/24 15:10 Globulin 2.7 g/dL (1.3-4.6) 10/18/24 15:10 HCG, Qual Negative (Negative) 10/18/24 15:10 Urine Color Masterson (Yellow) A 10/18/24 15:31 Urine Appearance Cloudy (CLEAR) A 10/18/24 15:31 Urine pH 5.5 (5-7) 10/18/24 15:31 Ur Specific [place] 1.028 (1.005-1.030) 10/18/24 15:31 Urine Protein Trace (Negative) A 10/18/24 15:31 Urine Glucose (UA) Negative (Normal) 10/18/24 15:31 Urine Ketones Trace (Negative) 10/18/24 15:31 Urine Blood 3+ (Negative) A 10/18/24 15:31 Urine Nitrate Negative (Negative) 10/18/24 15:31 Urine Bilirubin Negative (Negative) 10/18/24 15:31 Urine Urobilinogen 1.0 mg/dL (Negative) 10/18/24 15:31 Ur Leukocyte Esterase Trace (Negative) A 10/18/24 15:31 Urine RBC >100 /hpf (0-2) H 10/18/24 15:31 Urine WBC 6-10 /hpf (0-5) 10/18/24 15:31 Ur Squamous Epith Cells 0-5 /hpf (0-5) 10/18/24 15:31 Amorphous Sediment Not Reportable 10/18/24 15:31 Urine Bacteria None seen /hpf (NONE) 10/18/24 15:31 Hyaline Casts 0.81 /lpf 10/18/24 15:31 All radiology interpretation(s) finalized by discharge Discharge Plan Discharge Patient Disposition: Home Clinical Impression: Pelvic cramping, Abnormal vaginal bleeding Condition: Stable Prescriptions: No Action ascorbic acid (vitamin C) [Vitamin C] 1,000 mg Tablet 1,000 mg PO DAILY potassium chloride 10 mEq Capsule, Extended Release 10 meq PO DAILY Iron Chews 15 mg Tablet,Chewable 15 mg PO DAILY progesterone micronized 200 mg capsule 200 mg PO BID Lion's Gautam 1 cap PO QPM PRN (Reason: REST ) Discharge Orders: Discharge ED (Routine); Ordered 10/18/24 Ordered By: Adair Sellers Discharge Diet: Usual diet Discharge Activity: Resume usual activity Patient Instructions: Abnormal (Dysfunctional) Uterine Bleeding (ED), Patient Portal & Jim Instructions Activity Restrictions/Additional Instructions: Your blood tests, CAT scan, and ultrasound are all reassuring with no evidence of major problems requiring surgery or change in medication. Your blood levels are safe. Though not ideal, the amount of bleeding you are experiencing is not life-threatening or in need of emergent intervention. If bleeding continues please follow-up with your [facility] physician in the clinic. Print Language: Latvian Sign Out Sign Out Data: Patient Sign Out occurred on 10/18/24 at 17:24. Patient's care was discussed, and care was transferred from Eleuterio Rey DO to Adair Sellers MD. Post-Handoff Eval: Patient remained hemodynamically stable 30 course. Ultrasound, CT scan, and labs are all reassuring with no evidence of acute process requiring emergent intervention. She was encouraged to follow-up with [facility] and shows good understanding and agrees to plan. Coding Level of Care Code ED Screen Machine Operator for Chg Fwd Documented by User: Shaun Rowe, 10/20/24 23:57 HPI - Abdominal Pain General: Chief Complaint: Abdominal Pain Stated Complaint: pain in lower abdomen Time Seen by Provider: 10/18/24 14:59 Related Data Home Medications ?Medication ?Instructions ?Recorded ?Confirmed Lion's Gautam 1 cap PO QPM PRN REST 10/18/24 10/18/24 ascorbic acid (vitamin C) 1,000 mg 1,000 mg PO DAILY 10/18/24 10/18/24 tablet (Vitamin C) iron, carbonyl 15 mg chewable 15 mg PO DAILY 10/18/24 10/18/24 tablet (Iron Chews) potassium chloride 10 mEq 10 meq PO DAILY 10/18/24 10/18/24 capsule,extended release progesterone micronized 200 mg 200 mg PO BID 10/18/24 10/18/24 capsule Allergies Allergy/AdvReac Type Severity Reaction Status Date / Time benzonatate Allergy Mild hives Verified 07/28/24 11:54 diphenhydramine (From Allergy Mild hives Verified 07/28/24 11:54 Banophen Anti-Itch) loratadine Allergy Mild hives Verified 07/28/24 11:54 montelukast (From Singulair) Allergy Mild hives Verified 07/28/24 11:54 omeprazole Allergy Mild hives Verified 07/28/24 11:54 Penicillins Allergy Mild hives Verified 07/28/24 11:54 ranitidine (From Zantac) Allergy Mild hives Verified 07/28/24 11:54 tizanidine Allergy Mild hives Verified 07/28/24 11:54 zinc acetate (From Banophen Allergy Mild hives Verified 07/28/24 11:54 Anti-Itch) PFSH ED PFSH: Social History Smoking and tobacco/nicotine status: never used tobacco/nicotine Course Vital Signs: Vital signs: Vital Signs Temperature 98.9 F 10/18/24 14:59 Pulse Rate 75 10/18/24 19:56 Respiratory Rate 18 10/18/24 19:56 Blood Pressure 110/76 10/18/24 19:56 Pulse Oximetry 98 10/18/24 19:56 Oxygen Delivery Me thod Room Air 10/18/24 14:59 MDM - Abdominal Pain Medical Decision Making CT shows pelvic cyst pelvic ultrasound pending. Care signed out to Dr. Sellers at change of shift. See final notes for diagnosis and disposition. See post signout documentation Patient was signed out to Dr. Sellers. I did not see this patient Lab Data 10/18/24 15:10 10/18/24 15:10 Labs/Radiology: Radiology Impressions Abdomen/Pelvis CT 10/18/24 15:35 IMPRESSION: 1. Bilateral adnexal cystic lesions, measuring up to 7.2 x 5.1 cm on the right and 4 x 2.8 cm on the left. If clinically indicated, pelvic ultrasound may be obtained for further evaluation. 2. Additional findings, as above. Transvaginal US 10/18/24 17:07 IMPRESSION: Normal ovarian arterial and venous vascular flow. No evidence ovarian torsion. IMPRESSION: 1. 3.4 x 2.9 x 3.8 cm complex left ovarian cystic lesion with internal septations and debris, likely a hemorrhagic cyst. 2. 6.7 x 4.9 x 7.3 cm simple right ovarian cyst, likely a follicular cyst. 3. Additional findings, as above. Laboratory Results WBC 7.10 10^3/uL (3.29-11.43) 10/18/24 15:10 RBC 4.62 10^6/uL (3.85-5.65) 10/18/24 15:10 Hgb 14.10 g/dL (11.27-16.99) 10/18/24 15:10 Hct 41.1 % (36-47) 10/18/24 15:10 MCV 89.0 fl (85-98) 10/18/24 15:10 MCH 30.5 pg (27-33) 10/18/24 15:10 MCHC 34.3 g/dL (30-55) 10/18/24 15:10 RDW 11.9 % (12.1-15.1) L 10/18/24 15:10 Plt Count 301 10^3/cmm (157-399) 10/18/24 15:10 MPV 10.7 fL (7.4-10.4) H 10/18/24 15:10 Neut % (Auto) 61.3 % 10/18/24 15:10 Lymph % (Auto) 23.9 % 10/18/24 15:10 [place] % (Auto) 9.7 % 10/18/24 15:10 Eos % (Auto) 4.2 % 10/18/24 15:10 Baso % (Auto) 0.6 % 10/18/24 15:10 Neut # (Auto) 4.35 10^3/uL (1.8-7.7) 10/18/24 15:10 Lymph # (Auto) 1.7 10^3/uL (0.8-4.8) 10/18/24 15:10 [place] # (Auto) 0.7 10^3/uL (0.2-0.9) 10/18/24 15:10 Eos # (Auto) 0.3 10^3/uL (0.0-0.8) 10/18/24 15:10 Baso # (Auto) 0.0 10^3/uL (0.0-0.1) 10/18/24 15:10 Nucleated RBC % (auto) 0 % 10/18/24 15:10 Nucleated RBCs # 0.0 /100WBC 10/18/24 15:10 Sodium 140 mmol/L (136-145) 10/18/24 15:10 Potassium 3.7 mmol/L (3.5-5.1) 10/18/24 15:10 Chloride 103 mmol/L (98-107) 10/18/24 15:10 Carbon Dioxide 23 mmol/L (22-29) 10/18/24 15:10 Anion Gap 17.7 (5-19) 10/18/24 15:10 BUN 13 mg/dL (6-20) 10/18/24 15:10 Creatinine 0.6 mg/dL (0.5-0.9) 10/18/24 15:10 GFR Calculation 126.2 mL/min (90-130) 10/18/24 15:10 Glucose 84 mg/dL (65-115) 10/18/24 15:10 Calculated Osmolality 289 mOsm/kg (285-295) 10/18/24 15:10 Calcium 9.5 mg/dL (8.5-10.5) 10/18/24 15:10 Total Bilirubin 0.3 mg/dL (0.15-1.2) 10/18/24 15:10 AST 14 U/L (0-32) 10/18/24 15:10 ALT 20 U/L (0-33) 10/18/24 15:10 Alkaline Phosphatase 50 U/L (35-105) 10/18/24 15:10 Total Protein 7.0 g/dL (6.6-8.7) 10/18/24 15:10 Albumin 4.3 g/dL (3.5-5.2) 10/18/24 15:10 Globulin 2.7 g/dL (1.3-4.6) 10/18/24 15:10 HCG, Qual Negative (Negative) 10/18/24 15: Urine Color [place] (Yellow) A 10/18/24 15:31 Urine Appearance Cloudy (CLEAR) A 10/18/24 15:31 Urine pH 5.5 (5-7) 10/18/24 15:31 Ur Specific [place] 1.028 (1.005-1.030) 10/18/24 15:31 Urine Protein Trace (Negative) A 10/18/24 15:31 Urine Glucose (UA) Negative (Normal) 10/18/24 15:31 Urine Ketones Trace (Negative) 10/18/24 15: Urine Blood 3+ (Negative) A 10/18/24 15: Urine Nitrate Negative (Negative) 10/18/24 15:31 Urine Bilirubin Negative (Negative) 10/18/24 15:31 Urine Urobilinogen 1.0 mg/dL (Negative) 10/18/24 15:31 Ur Leukocyte Esterase Trace (Negative) A 10/18/24 15: Urine RBC >100 /hpf (0-2) H 10/18/24 15:31 Urine WBC 6-10 /hpf (0-5) 10/18/24 15:31 Ur Squamous Epith Cells 0-5 /hpf (0-5) 10/18/24 15:31 Amorphous Sediment Not Reportable 10/18/24 15:31 Urine Bacteria None seen /hpf (NONE) 10/18/24 15:31 Hyaline Casts 0.81 /lpf 10/18/24 15:31 Discharge Plan Discharge Patient Disposition: Home Clinical Impression: Pelvic cramping, Abnormal vaginal bleeding Condition: Stable Prescriptions: No Action ascorbic acid (vitamin C) [Vitamin C] 1,000 mg Tablet 1,000 mg PO DAILY potassium chloride 10 mEq Capsule, Extended Release 10 meq PO DAILY Iron Chews 15 mg Tablet,Chewable 15 mg PO DAILY progesterone micronized 200 mg capsule 200 mg PO BID Lion's Gautam 1 cap PO QPM PRN (Reason: REST ) Discharge Orders: Discharge ED (Routine); Ordered 10/18/24 Ordered By: Adair Sellers Discharge Diet: Usual diet Discharge Activity: Resume usual activity Patient Instructions: Abnormal (Dysfunctional) Uterine Bleeding (ED), Patient Portal & Jim Instructions Activity Restrictions/Additional Instructions: Your blood tests, CAT scan, and ultrasound are all reassuring with no evidence of major problems requiring surgery or change in medication. Your blood levels are safe. Though not ideal, the amount of bleeding you are experiencing is not life-threatening or in need of emergent intervention. If bleeding continues please follow-up with your [facility]NA[facility] physician in the clinic. Print Language: Latvian Sign Out Sign Out Data: Patient Sign Out occurred on 10/18/24 at 17:24. Patient's care was discussed, and care was transferred from Eleuterio Rey DO to Adair Sellers MD. Post-Handoff Eval: Patient remained hemodynamically stable 30 course. Ultrasound, CT scan, and labs are all reassuring with no evidence of acute process requiring emergent intervention. She was encouraged to follow-up with [facility] and shows good understanding and agrees to plan. Coding Level of Care Code ED Screen Machine Operator for Nicholas Landry
[2024-10-18 15:34] LABS: Hematocrit 41.1 % (36-47); Hemoglobin 14.10 g/dL (11.27-16.99); Mean Corpuscular HGB Conc 34.3 g/dL (30-55); Mean Corpuscular Hemoglobin 30.5 pg (27-33); Mean Corpuscular Volume 89.0 fl (85-98); Nucleated Red Blood Cells % 0 %; Platelet Count 301 10^3/cmm (157-399); Red Blood Count 4.62 10^6/uL (3.85-5.65); White Blood Count 7.10 10^3/uL (3.29-11.43)
--- NOTE | 2024-10-18 15:35 | CTR_ITS ---
PROCEDURE INFORMATION: Exam: CT Abdomen And Pelvis Without Contrast Exam date and time: 10/18/2024 3:54 PM Age: 19 years old Clinical indication: Other: Flank pain/hematuria TECHNIQUE: Imaging protocol: Computed tomography of the abdomen and pelvis without contrast. Axial, coronal and sagittal reformatted images were created and reviewed. Radiation optimization: All CT scans at this facility use at least one of these dose optimization techniques: automated exposure control; mA and/or kV adjustment per patient size (includes targeted exams where dose is matched to clinical indication); or iterative reconstruction. COMPARISON: CR XR abdomen min 2V 09111 09/15/2020 11:10 AM RADIATION DOSE METRICS: Total DLP (mGy-cm): 926.96 FINDINGS: Liver: Unremarkable. Gallbladder and biliary ducts: No radiodense gallstones. No biliary ductal dilatation. Pancreas: Unremarkable. Spleen: Unremarkable. Adrenal glands: Normal. No mass. Kidneys and ureters: No mass. No radiodense calculi. No hydronephrosis. Stomach and bowel: No bowel wall thickening. No obstruction. No pneumatosis. Appendix: Normal. Intraperitoneal space: Trace nonspecific free pelvic fluid, likely physiologic. No organized fluid collection. No free air. Vasculature: Unremarkable. No aneurysm. Lymph nodes: Small mesenteric lymph nodes, nonspecific in appearance. No pathologically enlarged lymph nodes. Urinary bladder: Unremarkable as visualized. Reproductive: Bilateral adnexal cystic lesions, measuring up to 7.2 x 5.1 cm on the right and 4 x 2.8 cm on the left. Bones/joints: No acute osseous abnormality. Soft tissues: Small, fat containing umbilical hernia. CT/CT kidney stone 60015 IMPRESSION: 1. Bilateral adnexal cystic lesions, measuring up to 7.2 x 5.1 cm on the right and 4 x 2.8 cm on the left. If clinically indicated, pelvic ultrasound may be obtained for further evaluation. 2. Additional findings, as above.
[2024-10-18 15:49] LABS: HCG, Serum Qual Negative (Negative)
[2024-10-18 15:52] LABS: Glucose Urine UA Negative (Normal); Nitrate Urine Negative (Negative); Specific Gravity, Urine 1.028 (1.005-1.030)
[2024-10-18 15:53] LABS: Alanine Aminotransferase 20 U/L (0-33); Albumin Level 4.3 g/dL (3.5-5.2); Alkaline Phosphatase 50 U/L (35-105); Anion Gap 17.7 (5-19); Aspartate Amino Transferase 14 U/L (0-32); Blood Urea Nitrogen 13 mg/dL (6-20); Calcium 9.5 mg/dL (8.5-10.5); Carbon Dioxide 23 mmol/L (22-29); Chloride 103 mmol/L (98-107); Creatinine Clr Calc Pharmacy 139.3725; Globulin 2.7 g/dL (1.3-4.6); Glucose 84 mg/dL (65-115); Osmolality Calculated 289 mOsm/kg (285-295); Potassium 3.7 mmol/L (3.5-5.1); Sodium 140 mmol/L (136-145); Total Protein 7.0 g/dL (6.6-8.7)
[2024-10-18 15:54] LABS: Add Urine Microscopic? YES
[2024-10-18 16:12] LABS: UA Slide Review UA Slide Review Perf
--- NOTE | 2024-10-18 17:07 | USR_ITS ---
PROCEDURE INFORMATION: Exam: US Duplex Artery and Vein of the Abdominal and/or Reproductive Organs. Complete Ovaries Exam date and time: 10/18/2024 6:34 PM Age: 19 years old Clinical indication: Pelvic pain; Prior surgery; Surgery date: 1-6 months; Surgery type: Unsure of exact date-patient reports having a d&c last month TECHNIQUE: Imaging protocol: Real-time duplex ultrasound scan of the arterial and venous flow with color Doppler flow and spectral waveform analysis with image documentation. Duplex exam was performed to evaluate for torsion and other vascular conditions. COMPARISON: US OB <=14 wk fetus w transvag 07/28/2024 2:57 PM FINDINGS: Right ovary/adnexa: Normal arterial and venous Doppler waveforms in the ovary. No ovarian torsion. Left ovary/adnexa: Normal arterial and venous Doppler waveforms in the ovary. No ovarian torsion. PROCEDURE INFORMATION: Exam: US Pelvis, Transvaginal, Non-Obstetric Exam date and time: 10/18/2024 6:34 PM Age: 19 years old Clinical indication: Pelvic pain; Prior surgery; Surgery date: 1-6 months; Surgery type: Unsure of exact date-patient reports having a d&c last month TECHNIQUE: Imaging protocol: Real-time transvaginal pelvic (non-obstetric) ultrasound with image documentation. Transvaginal imaging was used for better evaluation of the endometrium, adnexa, and/or cervix. COMPARISON: US OB <=14 wk fetus w transvag 07/28/2024 2:57 PM FINDINGS: Uterus: 7.2 x 4.4 x 3.6 cm. Normal endometrial thickness, measuring approximately 9 mm. Right ovary/adnexa: 7.8 x 5.1 x 7 cm. 6.7 x 4.9 x 7.3 cm simple cyst. No solid mass. Normal ovarian blood flow on color Doppler. Left ovary/adnexa: 4 x 3.3 x 3.4 cm. 3.4 x 2.9 x 3.8 cm complex cystic lesion with internal septations and debris. No solid mass. Normal ovarian blood flow on color Doppler. Urinary bladder: Urinary bladder is limited. Intraperitoneal space: Trace free pelvic fluid, likely physiologic. US/US transvaginal [id number] IMPRESSION: Normal ovarian arterial and venous vascular flow. No evidence ovarian torsion. IMPRESSION: 1. 3.4 x 2.9 x 3.8 cm complex left ovarian cystic lesion with internal septations and debris, likely a hemorrhagic cyst. 2. 6.7 x 4.9 x 7.3 cm simple right ovarian cyst, likely a follicular cyst. 3. Additional findings, as above.
[2024-10-18 19:56] VITALS: BP 110/76; PULSE 75; RESP 18; O2SAT 98
== END 2024-10-18 20:01 | disposition home or self-care (01) ==
PROVIDERS: Family Medicine; Emergency Provider Student in an Organized Health Care Education/Training Program
DX: N93.9 Abnormal uterine and vaginal bleeding, unspecified (principal); R25.2 Cramp and spasm
CPT/HCPCS: 36415; 74176; 76830; 80053; 81001; 84703; 85025; 99284